=== PATIENT | female | born 1960 | race Caucasian/White ===

== ENCOUNTER 2016-11-21 11:40 | Emergency (ER) | payer OTHER ==
--- NOTE | ~2016-11-21 | EKG ---
PATIENT: EVERT ROSS UNIT #: [id number] Ventricular Rate: 85 BPM Atrial Rate: 85 BPM P-R Interval: 182 ms QRS Duration: 90 ms Q-T Interval: 388 ms QTC Calculation(Bezet): 461 ms P [place]: 49 degrees Calculated R [place]: 74 degrees Calculated T [place]: 38 degrees Diagnosis Line: Normal sinus rhythm Diagnosis Line: Normal ECG Diagnosis Line: When compared with ECG of 15-OCT-2016 19:33, Diagnosis Line: T wave inversion no longer evident in Anterior Diagnosis Line: leads Diagnosis Line: Confirmed by ZAY STUBBS MD ([id number]) on 11/22/2016 Diagnosis Line: 6:18:11 PM INTERPRETING MD: EVELYNE SHRESTHA
--- NOTE | ~2016-11-21 | CR72 ---
[facility] A Service of [facility] RADIOLOGY TEXT RESULTS PATIENT: EVERT ROSS LOCATION: [facility] : 60 UNIT #: [id number] AGE: [address]: Opal Lewis MD SEX: F ORDER DR: [id number] [facility] [address] [place], [place] [address] [id number] E MR#: [id number] Acc #: [id number] NAME: EVERT ROSS : 1960 SEX: F STUDY DATE/TIME: 11/21/2016 11:12 UNIT: [facility] ROOM: STUDY DESCRIPTION: CR Chest Single View Portable Attending Physician: Opal Lewis M.D. Ordering Physician: Opal Lewis M.D. Primary Care Physician: No Primary Care Physician MEDICAL IMAGING REPORT This report is preliminary unless electronic signature is present EXAM Portable chest. INDICATIONS Shortness of air and chest discomfort for 4-5 days. FINDINGS Portable view of the chest is obtained. There is no comparison. The heart size and vascularity are normal. The lungs are clear and the bones are normal. IMPRESSION No active disease. Dictated by... Cuong Mcneal M.D. THIS IS AN ELECTRONICALLY VERIFIED REPORT Cuong Mcneal M.D. at 11/21/2016 3:13 PM FEL/marti TD: 11/21/2016 14:04 JOB #: [id number] MEDICAL IMAGING REPORT COPY
--- NOTE | ~2016-11-21 | CT16 ---
[facility] A Service of [facility] RADIOLOGY TEXT RESULTS PATIENT: EVERT ROSS LOCATION: [facility] : 60 UNIT #: [id number] AGE: [address]: Opal Lewis MD SEX: F ORDER DR: [id number] [facility] [address] [place], [place] [address] [id number] E MR#: [id number] Acc #: [id number] NAME: EVERT ROSS : 1960 SEX: F STUDY DATE/TIME: 11/21/2016 14:12 UNIT: [facility] ROOM: STUDY DESCRIPTION: CT Angio Chest for PE Attending Physician: Opal Lewis M.D. Ordering Physician: Opal Lewis M.D. MEDICAL IMAGING REPORT This report is preliminary unless electronic signature is present EXAM Chest CTA. DATE OF EXAM 11/21/2016 INDICATIONS Shortness of air, cough and chest pain over the last 3 days. Pain currently 6 out of 10. TECHNIQUE Axial images were obtained through the chest following IV contrast administration. 3-D reformats were obtained. NOTE: This CT exam was performed with one or more of the following radiation dose reduction techniques: automatic exposure control, adjustment of mA and/or kV according to patient size, and iterative reconstruction. COMPARISON No comparison chest CT. FINDINGS There is no pulmonary embolism or aortic dissection. There is no pleural or pericardial effusion. There is no adenopathy. Lung window images are degraded by respiratory motion. There is evidence of some subtle septal thickening of the lungs which could reflect early edema. There is granulomatous calcification in the right upper lobe. Minimal dependent atelectasis in the lower lobes. Upper abdomen shows changes of cholecystectomy. IMPRESSION 1. No pulmonary embolism or aortic dissection. 2. Septal thickening in the lungs could reflect volume overload or early [facility] A Service [facility] RADIOLOGY TEXT RESULTS PATIENT: EVERT ROSS LOCATION: [facility] : 60 UNIT #: [id number] AGE: [address]: Opal Lewis MD SEX: F ORDER DR: edema. There are no infiltrates seen to suggest pneumonia. Dictated by... You Mendez Jr., M.D. THIS IS AN ELECTRONICALLY VERIFIED REPORT You Mendez Jr., M.D. at 11/22/2016 8:09 AM AMY/jl TD: 11/21/2016 16:15 JOB #: [id number] MEDICAL IMAGING REPORT COPY
[2016-11-21 11:14] LABS: BASOPHIL# 0.1 X10e3 (0-0.3); BASOPHIL% 1.1 % (0-2.5); EOSINOPHIL# 0.1 X10e3 (0-0.7); EOSINOPHIL% 2.1 % (0.0-7.0); HEMATOCRIT 40.2 % (35.0-45.0); HEMOGLOBIN 13.4 gm/dL (12.0-16.0); LYMPHOCYTE# 1.9 X10e3 (1.0-3.5); LYMPHOCYTE% 32.8 % (17.0-45.0); MEAN CELL VOLUME 88.7 FL (83-96); MEAN CORPUSCULAR HEMOGLOBIN 29.6 PG (28-34); MEAN CORPUSCULAR HGB CONC 33.4 g/dL (30-36); MEAN PLATELET VOLUME 8.5 FL (6.5-11.5); MONOCYTE# 0.6 X10e3 (0-1.0); MONOCYTE% 11.5 % (3.0-12.0); NEUTROPHIL% 52.5 % (40-75); PLATELET COUNT 271 X10e3 (140-420); RED BLOOD COUNT 4.54 X10e (3.90-5.30); RED CELL DISTRIBUTION WIDTH 12.9 % (11.0-15.5); WHITE BLOOD COUNT 5.6 X10e3 (4.0-10.5)
[2016-11-21 11:16] LABS: DIFF IND NO
[2016-11-21 11:35] LABS: BLOOD UREA NITROGEN 9 mg/dL (9-23); BUN/CREATININE RATIO 11.25; CALCIUM SERUM 9.4 mg/dL (8.4-10.2); CARBON DIOXIDE 20 mmol/L (22-31); CHLORIDE 110 mmol/L (100-111); CREATININE SERUM 0.8 mg/dL (0.6-1.4); GLOM FILT RATE Estimated ABOVE60 mL/min (>60); GLUCOSE FASTING 90 mg/dL (70-110); POTASSIUM 3.9 mmol/L (3.5-5.1); SODIUM 135 mmol/L (135-145)
[2016-11-21 11:59] LABS: POC - TROPONIN <0.05 ng/mL (<=0.05)
[2016-11-21 12:06] LABS: POC - CKMB 1.1 ng/mL (0.0-7.9); POC - TROPONIN <0.05 ng/mL (<=0.05)
[2016-11-21 12:52] LABS: AMPHETAMINE NEG (NEG); BARBITURATES NEG (NEG); BENZODIAZEPINES NEG (NEG); COCAINE NEG (NEG); MARIJUANA NEG (NEG); OPIATES NEG (NEG); TRICYCLIC ANTIDEPRESSANTS NEG (NEG); U METHADONE NEG (NEG)
[2016-11-21 15:52] LABS: INFLUENZA A NEG (NEG); INFLUENZA B NEG (NEG)
== END 2016-11-21 17:03 | disposition home or self-care (01) ==
LOC: CED 11:40
PROVIDERS: Emergency Medicine
DX: B34.9 Viral infection, unspecified (principal); F31.9 Bipolar disorder, unspecified; F17.210 Nicotine dependence, cigarettes, uncomplicated; Z88.2 Allergy status to sulfonamides
CPT/HCPCS: 71010; 71275; 80048; 80307; 82553; 83880; 84484; 85025; 85379; 87804; 93005; 94640; 96374; 99284; J1885; Q9967

== ENCOUNTER 2017-04-26 14:07 | Emergency (ER) | payer OTHER ==
[~2017-04-26] VITALS: Ht 165.1 cm; Wt 63.5 kg
--- NOTE | ~2017-04-26 | CR63 ---
[facility] A Service of [facility] RADIOLOGY TEXT RESULTS PATIENT: EVERT ROSS LOCATION: [facility] : 60 UNIT #: [id number] AGE: [address]: Dwaine Heredia MD SEX: F ORDER DR: [id number] [facility] [address] [place], [place] [address] [id number] E MR#: [id number] Acc #: [id number] NAME: EVERT ROSS : 1960 SEX: F STUDY DATE/TIME: 04/26/2017 16:20 UNIT: [facility] ROOM: STUDY DESCRIPTION: CR Chest 2 View Attending Physician: Dwaine Heredia M.D. Ordering Physician: Dwaine Heredia M.D. Primary Care Physician: No Primary Care Physician MEDICAL IMAGING REPORT This report is preliminary unless electronic signature is present EXAM PA and lateral chest. HISTORY Chest pain, back pain and shortness of air for 4 days. FINDINGS Two views of the chest demonstrate the cardiac size and pulmonary vascularity are within normal limits. No airspace infiltrates or effusions. Minimal scarring lateral right mid lung. IMPRESSION No acute findings and no active disease. Dictated by... Blake Mejia M.D. THIS IS AN ELECTRONICALLY VERIFIED REPORT Blake Mejia M.D. at 04/27/2017 8:37 PM ERIC/jl TD: 04/26/2017 22:20 JOB #: [id number] MEDICAL IMAGING REPORT Page 1 of 1 COPY
--- NOTE | ~2017-04-26 | EKG ---
PATIENT: EVERT ROSS UNIT #: [id number] Ventricular Rate: 73 BPM Atrial Rate: 73 BPM P-R Interval: 184 ms QRS Duration: 90 ms Q-T Interval: 392 ms QTC Calculation(Bezet): 431 ms P [place]: 48 degrees Calculated R [place]: 78 degrees Calculated T [place]: 48 degrees Diagnosis Line: Normal sinus rhythm Diagnosis Line: Normal ECG Diagnosis Line: When compared with ECG of 21-NOV-2016 10:08, Diagnosis Line: No significant change was found Diagnosis Line: Confirmed by PERFECTO NICOLAS MD ([id number]) on 04/27/2017 Diagnosis Line: 8:38:21 AM INTERPRETING MD: FIDENCIO SHRESTHA
[2017-04-26 15:30] LABS: BASOPHIL% 0.6 % (0-2.5); EOSINOPHIL# 0.1 X10e3 (0-0.7); EOSINOPHIL% 2.2 % (0.0-7.0); HEMATOCRIT 40.1 % (35.0-45.0); HEMOGLOBIN 13.5 gm/dL (12.0-16.0); LYMPHOCYTE# 1.4 X10e3 (1.0-3.5); LYMPHOCYTE% 25.2 % (17.0-45.0); MEAN CELL VOLUME 89.3 FL (83-96); MEAN CORPUSCULAR HEMOGLOBIN 29.9 PG (28-34); MEAN CORPUSCULAR HGB CONC 33.5 g/dL (30-36); MEAN PLATELET VOLUME 8.3 FL (6.5-11.5); MONOCYTE# 0.4 X10e3 (0-1.0); MONOCYTE% 7.8 % (3.0-12.0); NEUTROPHIL# 3.7 X10e3 (1.5-7.1); NEUTROPHIL% 64.2 % (40-75); PLATELET COUNT 269 X10e3 (140-420); WHITE BLOOD COUNT 5.7 X10e3 (4.0-10.5)
[2017-04-26 15:31] LABS: DIFF IND NO
[2017-04-26 15:35] LABS: POC - CKMB <1.0 ng/mL (0.0-7.9); POC - TROPONIN <0.05 ng/mL (<=0.05)
[2017-04-26] MEDS ORDERED: PATIENT'S PHARMACY (15:40)
[2017-04-26] MEDS ORDERED: ATIVAN PO (15:40)
[2017-04-26] MEDS ORDERED: LITHIUM PO (15:40)
[2017-04-26] MEDS ORDERED: PAXIL PO (15:41)
[2017-04-26 15:58] LABS: ALBUMIN SERUM 4.3 g/dL (3.5-5.0); BILIRUBIN, DIRECT 0.1 mg/dL (0.0-0.2); BILIRUBIN,INDIRECT 0.2 mg/dL (0.0-0.9); BILIRUBIN,TOTAL 0.3 mg/dL (0.2-2.0); CREATININE SERUM 0.8 mg/dL (0.6-1.4); GLOM FILT RATE Estimated 82.5 mL/min (>60); POTASSIUM 4.1 mmol/L (3.5-5.1); PROTEIN TOTAL SERUM 7.5 g/dL (6.0-8.3)
[2017-04-26 17:20] LABS: POC - CKMB <1.0 ng/mL (0.0-7.9); POC - TROPONIN <0.05 ng/mL (<=0.05)
== END 2017-04-26 17:23 | disposition home or self-care (01) ==
LOC: CED 14:07
PROVIDERS: Emergency Medicine
DX: R07.89 Other chest pain (principal); Z90.49 Acquired absence of other specified parts of digestive tract; Z90.710 Acquired absence of both cervix and uterus; Z88.2 Allergy status to sulfonamides; Z88.5 Allergy status to narcotic agent; Z79.899 Other long term (current) drug therapy
CPT/HCPCS: 36415; 71020; 80048; 80076; 82553; 84484; 85025; 93005; 99285